=== PATIENT | male | born 1955 | race Caucasian/White ===

== ENCOUNTER → 2020-08-25 14:51 | Outpatient (CLI) | payer MEDICARE, OTHER, SELFPAY | PROVIDERS: PCP Family Medicine; Referring Provider Family Medicine; Visit Provider Family Medicine | DX: Z00.00 Encounter for general adult medical examination without abnormal findings (principal) ==

== ENCOUNTER → 2023-07-10 | Outpatient (CLI) | payer MEDICARE, OTHER, SELFPAY ==
[2023-07-10 17:33] LABS: Hematocrit 48.7 % (40-54); Hemoglobin 16.1 g/dL (13.0-16.5); Mean Corp Hgb Conc 33.1 g/dL (32-36); Mean Corpuscular Hgb 28.8 pg (27.0-32.0); Mean Platelet Vol. 8.7 fl (6.2-12.0); Platelet Count 327 K/mm3 (150-450); RBC Distribution Width CV 12.9 % (11.6-14.6); RBC Distribution Width SD 41.2 fl (35.1-43.9); White Blood Count 6.1 K/mm3 (4.4-11.0)
[2023-07-10 18:22] LABS: ALB/GLOB Ratio 1.3 RATIO (0.9-2.4); AST(SGOT) 19 U/L (15-37); Alanine Aminotransfer ALT/SGPT 37 U/L (16-61); Albumin, Serum 4.3 g/dL (3.2-5.0); Alkaline Phosphatase 63 U/L (45-117); Anion Gap 8 (5-15); BUN 19 mg/dL (7-18); BUN/Creat Ratio 16.2 RATIO (10-20); Calcium,Total 9.4 mg/dL (8.5-10.1); Chloride 108 mmol/L (98-107); Cholesterol 226 mg/dL (200); Creatinine, Serum 1.17 mg/dL (0.70-1.30); EST Glomerular Filtration Rate 66 mL/min (>60); Est Glom Filt Rate - Afr Amer 80 mL/min (>60); Globulin 3.3 g/dL (2.2-4.2); Glucose 89 mg/dL (74-106); High Density Lipoprotein 65 mg/dL; Potassium 3.9 mmol/L (3.5-5.1); Protein, Total 7.6 g/dL (6.4-8.2); Sodium Level 141 mmol/L (136-145); Thyroid Stim Hormone (TSH) 1.97 uIU/mL (0.358-3.74); Triglycerides 86 mg/dL; Very Low Density Lipoprotein 17 mg/dL (5-40)
== END | disposition home or self-care (01) ==
LOC: MFPLAB 15:34
PROVIDERS: Nurse Practitioner Family; PCP Family Medicine; Visit Provider Family Medicine
DX: R03.0 Elevated blood-pressure reading, without diagnosis of hypertension (principal)
CPT/HCPCS: 36415; 80053; 80061; 84443; 85027

== ENCOUNTER → 2024-01-10 | Outpatient (CLI) | payer MEDICARE, OTHER, SELFPAY ==
[2024-01-10 15:39] LABS: Anion Gap 4 (5-15); BUN 30 mg/dL (7-18); Calcium,Total 9.8 mg/dL (8.5-10.1); Chloride 105 mmol/L (98-107); Creatinine, Serum 1.25 mg/dL (0.70-1.30); EST Glomerular Filtration Rate 61 mL/min (>60); Est Glom Filt Rate - Afr Amer 74 mL/min (>60); Glucose 94 mg/dL (74-106); Potassium 4.7 mmol/L (3.5-5.1); Sodium Level 137 mmol/L (136-145)
== END | disposition home or self-care (01) ==
PROVIDERS: PCP Family Medicine; Visit Provider Family Medicine
DX: I10 Essential (primary) hypertension (principal)
CPT/HCPCS: 36415; 80048

== ENCOUNTER → 2024-10-20 | Outpatient (CLI) | payer MEDICARE, SELFPAY ==
[2024-10-20 16:14] LABS: Anion Gap 12 (5-15); BUN 23 mg/dL (4-19); BUN/Creat Ratio 17.7 RATIO (10-20); Calcium,Total 9.8 mg/dL (7.6-11.0); Carbon Dioxide 24.6 mmol/L (21.0-32.0); Chloride 104 mmol/L (98-108); Cholesterol 180 mg/dL (<=200); Glucose 94 mg/dL (70-99); Low Density Lipoprotein Calc. 108 mg/dL; PSA,Total - Annual Screen 3.57 ng/mL (0.02-4.00); Potassium 4.3 mmol/L (3.3-5.1); Triglycerides 100 mg/dL; Very Low Density Lipoprotein 20 mg/dL (5-40); cholesterol:hdl ratio screen 3.47
== END | disposition home or self-care (01) ==
LOC: MFPLAB 11:53
PROVIDERS: PCP Family Medicine; Referring Provider Family Medicine; Visit Provider Family Medicine
DX: Z12.5 Encounter for screening for malignant neoplasm of prostate (principal); I10 Essential (primary) hypertension
CPT/HCPCS: 36415; 80048; 80061; 84153; G0103

== ENCOUNTER 2025-01-22 12:14 | Observation (INO) | payer MEDICARE, OTHER, SELFPAY ==
[2025-01-22] VITALS (21 sets, daily range): BP systolic 113–154; BP diastolic 66–109; PULSE 62–88; RESP 13–22; TEMP 36.4–36.9; O2SAT 95–100; BMI 29.4; BMI 28.5
--- NOTE | 2025-01-22 12:23 | EKG12_ITS ---
Test Reason : TIA
--- NOTE | 2025-01-22 12:23 | CT_ITS ---
PROCEDURE: CT/STROKE Brain/Head without Cont
--- NOTE | 2025-01-22 12:23 | CT_ITS ---
PROCEDURE: CT/STROKE CTA Head AND Neck W/Con
--- NOTE | 2025-01-22 12:24 | ED.VIS.STROK ---
HPI History of Present Illness Chief Complaint: Stroke Alert Informant: patient and spouse/S.O. Narrative Narrative: Patient is a 69-year-old male denies any significant past medical history presenting for right sided weakness and blurred vision. Patient states he was having his morning coffee (around 1045) with started to feel weak and a little numb on the right side of his body. Notes he had some blurry vision. He was able to still hold his coffee cup. He is right-hand dominant. He also notes he felt a little dizzy. He states he felt fine when he got up this morning around 9 or 930. He came in for further evaluation. He says he is otherwise been in his normal state of health. He denies any headache. He is on any blood thinners. [place] any show any bleeding disorders or head trauma. Currently states his symptoms have pretty much resolved he still feels a little off on the right side. PFSH PFS Medical History no medical history Home Medications ?Medication ?Instructions ?Recorded ?Last Taken ?Type lisinopril 20 1 tab PO BID 01/22/25 01/22/25 History mg-hydrochlorothiazide 12.5 mg tablet Allergy/AdvReac Type Severity Reaction Status Date / Time No Known Allergies Allergy Verified 01/22/25 12:28 Family History no significant family his Surgical History no surgical history Social History Smoking Status: Former smoker ROS ROS ED Constitutional Constitutional ED: Denies chills or fever(s) Eyes Eyes: Reports blurry vision ENT ENT ED: Denies sore throat Cardiovascular Cardiovascular: Denies chest pain Respiratory/Chest Respiratory/Chest: Denies cough or dyspnea Gastrointestinal Gastrointestinal: Denies abdominal pain, nausea or vomiting Musculoskeletal Musculoskeletal: Denies arthralgias or myalgias Integumentary Denies rash Neurologic Neurologic: Reports paresthesias and weakness; Denies headache(s) Psychiatric Psychiatric: Denies anxiety Hematologic/Lymphatic Hematologic/Lymphatic: Denies easy bleeding or easy bruising EXAM Physical Exam Const Vital Signs: 01/22/25 12:15 01/22/25 12:18 01/22/25 12:23 Temperature 97.6 F L 97.6 F L Temperature Source Temporal Oral Pulse Rate 78 75 71 Respiratory Rate 16 16 14 Blood Pressure 149/86 H 149/86 H 128/90 H Blood Pressure Mean 107 107 102 Pulse Ox 99 97 100 Oxygen Delivery Method Room Air Room Air Room Air 01/22/25 12:42 01/22/25 12:43 01/22/25 12:44 Temperature Temperature Source Pulse Rate 83 70 Respiratory Rate 14 13 Blood Pressure 144/109 H 136/77 H 133/83 H Blood Pressure Mean 120 93 96 Pulse Ox 99 100 Oxygen Delivery Method 01/22/25 12:45 01/22/25 12:45 01/22/25 12:49 Temperature Temperature Source Pulse Rate 71 71 Respiratory Rate 14 15 Blood Pressure 128/90 H Blood Pressure Mean 102 Pulse Ox 100 100 Oxygen Delivery Method Room Air Room Air 01/22/25 13:00 01/22/25 13:15 01/22/25 13:30 Temperature Temperature Source Pulse Rate 69 72 72 Respiratory Rate 17 22 H 22 H Blood Pressure 133/86 H Blood Pressure Mean 101 Pulse Ox 100 97 97 Oxygen Delivery Method 01/22/25 13:40 01/22/25 13:45 01/22/25 14:00 Temperature Temperature Source Pulse Rate 62 70 Respiratory Rate 18 16 Blood Pressure 147/91 H 149/85 H 149/85 H Blood Pressure Mean 107 104 106 Pulse Ox 96 99 Oxygen Delivery Method 01/22/25 14:08 01/22/25 14:15 Temperature 97.6 F L Temperature Source Pulse Rate 70 69 Respiratory Rate 16 17 Blood Pressure 149/85 H 149/85 H Blood Pressure Mean 106 106 Pulse Ox 99 95 Oxygen Delivery Method Positive well nourished and well developed General Appearance ED: well developed and NAD HEENT Reports moist mucous membranes Eyes PERRL Neck supple Chest Wall inspection of chest normal and palpation of chest normal Resp normal respiratory effort and clear to auscultation bilaterally Cardio no murmurs Cardio Narrative: 2+ radial DP pulses Rate: regular rate Rhythm: regular rhythm GI normal to inspection, nondistended, normoactive bowel sounds and soft to palpation Extremity normal to inspection General Extremety ED: Negative for deformity or edema General Extremity: Negative for deformity or edema Neuro oriented x3, CN's II-XII intact bilaterally and no sensory deficits noted Neuro Narrative: NIH equals 0 Sensorium / Orientation: alert, oriented to person, oriented to place and oriented to time Speech: speech normal Motor Exam: strength 5/5 throughout; Negative for general weakness Psych mental status grossly normal Skin no wounds Lesions: no lesions Rashes: no rashes MDM MDM MDM Narrative Medical decision making narrative: Patient is evaluated for right sided weakness and paresthesias as well as blurry vision. Stroke alert was called upon arrival however our I meetly went to the bedside and patient does not have any objective weakness. Sensation is intact to light touch and he does not have any subjective paresthesias at this time. His NIH is currently 0. Will cancel stroke alert but will come up for possible acute stroke/TIA. Given that his NIH is currently 0 he is not a TNK candidate. Workup is largely unremarkable wound CT of the brain, CTA of the head and neck, chest x-ray, EKG, CBC, BMP, coags and high-sensitivity troponins. Patient is mildly hypertensive emergency room. Will be admitted for further stroke/TIA evaluation. Case discussed with hospitalist, Dr. Currie. Patient and family agreeable with this plan of care. Patient tin hemodynamically stable in the emergency room. Lab Data Attestation: I reviewed the patient's lab results. Labs: Laboratory Results - last 24 hr 01/22/25 01/22/25 01/22/25 12:20 12:35 14:07 WBC 7.8 RBC 5.26 Hgb 15.5 Hct 45.9 MCV 87.3 MCH 29.5 MCHC 33.8 RDW Std Deviation 39.9 RDW Coeff of Pari 12.5 Plt Count 306 MPV 8.4 Immature Gran % (Auto) 0.500 Neut % (Auto) 63.1 Lymph % (Auto) 23.4 [place] % (Auto) 9.6 Eos % (Auto) 2.6 Baso % (Auto) 0.8 Absolute Neuts (auto) 4.9 Absolute Lymphs (auto) 1.82 Nucleated RBC % 0 PT 12.6 INR 0.9 APTT 22.8 L Sodium 139 Potassium 4.3 Chloride 104 Carbon Dioxide 25.6 Anion Gap 10 BUN 27 H Creatinine 1.38 H Estim Creat Clear Calc 59.64 Est GFR (MDRD) Non-Af 55 L BUN/Creatinine Ratio 19.2 Glucose 103 H Calcium 9.6 Troponin T High Sens 10 Troponin T Hi Sens 2 Hr 7 POC Glucose 92 Radiography Diagnostic Testing: Clinical Impression(s) from Imaging Studies Brain CT 01/22/25 12:23 IMPRESSION: No intracranial hemorrhage or other acute process is seen. Stroke Alert: No intracranial hemorrhage or other acute process. The critical findings in the findings and impression above were relayed directly by me by telephone to Glendy Thorne on 01/22/2025 at 11:57 with readback verification. Reading Location: [address] Head/Neck CTA 01/22/25 12:23 IMPRESSION: Unremarkable examination. Reading Location: [facility] Chest X-Ray 01/22/25 12:35 IMPRESSION: Lungs appear clear. No pleural effusion or pneumothorax is seen. The cardiomediastinal silhouette is within the normal range for age. No acute osseous changes seen. No evidence of acute cardiopulmonary disease. Reading Location: [address] Rhythm Strip Rhythm Strip: Sinus Rhythm Rate: 71 Ectopy: None EKG Initial EKG: Attestation: I personally reviewed and interpreted this EKG as follows: Interpretation: Sinus Rhythm Comments: Normal sinus rhythm rate of 71 bpm Normal axis Normal intervals Normal ST segment Management Discussion w/another healthcare provider: Hospitalist and Radiologist (CTA neg) Discharge Plan Dx/Rx/DC Orders Clinical Impression: Right sided weakness, HTN (hypertension) Disposition Disposition: Acute Care Hospital [facility] Discharge Date/Time: 01/22/25 14:35 NIHSS NIHSS 1a. Level of Consciousness: 0 - Alert; keenly responsive 1b. LOC Questions: 0 - Answers BOTH questions correctly 1c. LOC Commands: 0 - Performs BOTH tasks correctly 2. Best Gaze: 0 - Normal 3. Visual: 0 - No visual loss 4. Facial Palsy: 0 - Normal symmetrical movements 5a. Left Arm: 0 - No drift; arm holds 90 (or 45) degrees for full 10 seconds 5b. Right Arm: 0 - No drift; arm holds 90 (or 45) degrees for full 10 seconds 6a. Left Le - No drift; leg holds 30-degree position for full 5 seconds 6b. Right Le - No drift; leg holds 30-degree position for full 5 seconds 7. Limb Ataxia: 0 - Absent 8. Sensory: 0 - Normal; no sensory loss 9. Best Language: 0 - No aphasia; normal 10. Dysarthria: 0 - Normal 11. Extinction and Inattention: 0 - No abnormality Total: 0 Stroke Questions Stroke Team Activated: Yes Reviewed Inclusion/Exclusion criteria: Yes IV Thrombolytic Administered: No (NIH currently 0)
[2025-01-22 12:32] LABS: Hematocrit 45.9 % (40-54); Hemoglobin 15.5 g/dL (13.0-16.5); Immature Granulocytes Count 0.040 X10^3/uL (0.0-0.0); Mean Corp Hgb Conc 33.8 g/dL (32-36); Mean Corpuscular Volume 87.3 fL (80-94); Mean Platelet Vol. 8.4 fl (6.2-12.0); NRBC Flagged by Analyzer 0 % (0-5); Platelet Count 306 K/mm3 (150-450); RBC Distribution Width CV 12.5 % (11.6-14.6); RBC Distribution Width SD 39.9 fl (35.1-43.9); Red Blood Count 5.26 M/mm3 (4.6-6.2); White Blood Count 7.8 K/mm3 (4.4-11.0)
--- NOTE | 2025-01-22 12:35 | RAD_ITS ---
PROCEDURE: RAD/Chest 1 View
[2025-01-22 12:41] LABS: Partial Thromboplast Time 22.8 Seconds (24.1-36.2); Prothrombin Time (Protime)PT. 12.6 SECONDS (11.7-14.9)
[2025-01-22 12:49] LABS: Anion Gap 10 (5-15); BUN 27 mg/dL (4-19); BUN/Creat Ratio 19.2 RATIO (10-20); Calcium,Total 9.6 mg/dL (7.6-11.0); Carbon Dioxide 25.6 mmol/L (21.0-32.0); Chloride 104 mmol/L (98-108); Estimated Creatinine Clearance 59.64 ml/min (50-250); Glucose 103 mg/dL (70-99); Potassium 4.3 mmol/L (3.3-5.1); Troponin T High Sensitivity 10 ng/L (<=22)
--- NOTE | 2025-01-22 13:04 | ED.RN ---
Per Americo Sneed to cancel NIH.
--- NOTE | 2025-01-22 13:19 | CHAPLAIN ---
Type of Pastoral Visit ___ Initial Visit ___ Follow-up Visit ___ On-call Visit ___ General Patient Visit ___ Spiritual Assessment ___ Family Conference ___ Bereavement ___ Rapid Response ___ Code Blue ___ Other (describe below) Pastoral Care Referral From ___ Patient ___ Family ___ Nurse ___ Physician ___ Knitting Inspector ___ Real Estate Agent/Broker ___ Other (describe below) Sacrament/Intervention ___ Active listening ___ Anointing ___ Adventism ___ Bereavement ___ Communion ___ [place] exploration ___ ___ Life review ___ Prayer ___ Reconciliation ___ Sacrament of Sick ___ Supportive presence ___ Wedding ___ Other (describe below) Pastoral Comments responded to stroke alert in the ED; pt was being taken to CT for evaluation; and son are in the room and offered support; denies needs; pt was alert and talking so there was optimism for good outcome; brought water to family and offered future support as desired
--- NOTE | 2025-01-22 14:14 | CM.ED ---
Social Work Reason for visit: Stroke Alert SW and [facility] x ray equipment tester met with patients and son, both denied any needs at this time. Danica Noyola, UPPER DOUBLER, EXECUTIVE VICE PRESIDENT AND CHIEF OPERATING OFFICER
--- NOTE | 2025-01-22 14:27 | PCM.HP.STD ---
HPI - General General Date of Admission: 01/22/25 Date of Service: 01/22/25 Chief Complaint: R sided weakness HPI Narrative VERONICA LUNA, is [id number] male with a history of hypertension presented [facility] ED 01/22/2025 for right sided weakness and blurred vision. Reportedly was having his morning coffee at 1045 and then felt a little bit weak and numb on the right side of his body with some blurry vision but was still able to hold his coffee cup. Also had a little dizzy at the time. He presented the ED for further evaluation. In the ED temp 97.6, heart rate 78, blood pressure 149/86, respiratory rate 16 pulse ox 99% on room air. CBC no acute abnormalities, BMP with a BUN of 27 and creatinine 1.38, troponin of 10. CT head and CTA head and neck with no acute process. Hospitalist contacted for admission for stroke rule out. Patient evaluated bedside. He reports history as above, went to get his coffee this a.m. and right leg suddenly felt very weak but he was able to continue to stand before lowering himself to the ground, also felt like right arm was weaker and did not feel quite right, possibly some paresthesias on the right side as well, no changes in his face, possibly some blurry vision but said he felt more lightheaded than anything. Noted that he got his flu shot yesterday and fill congested this morning, no fevers, no shortness of breath or chest pain. He reports symptoms have almost resolved but he still feels like his right lower extremity is slightly weaker than his left and noticed it when he got up to ambulate to the bathroom [facility] Medical History no medical history Home Medications ?Medication ?Instructions ?Recorded ?Last Taken ?Type lisinopril 20 1 tab PO BID 01/22/25 01/22/25 History mg-hydrochlorothiazide 12.5 mg tablet Allergy/AdvReac Type Severity Reaction Status Date / Time No Known Allergies Allergy Verified 01/22/25 12:28 Family History no significant family his Surgical History no surgical history Social History Smoking Status: Former smoker ROS ROS Narrative General: Denies fever/chills HENT: Denies headache, little bit of nasal congestion, denies sore throat EYES: Denies changes in vision Resp: Denies cough, denies shortness of breath Cardiac: Denies chest pain GI: Denies abdominal pain, denies changes in bowel, denies nausea/vomiting : Denies changes in urination Extremity: Denies swelling MSK: Had weakness in right lower extremity greater than right upper extremity, right upper extremity symptoms have resolved, still feels slightly weak in right lower extremity Neuro: Denies any numbness/tingling or paresthesias at this time, did possibly have some of the very onset of symptoms Heme: Denies any bleeding or bruising Skin: Denies rashes Psychiatric: No complaints voiced Vital Signs Vital Signs Vital Signs: 01/22/25 12:15 01/22/25 12:18 01/22/25 12:23 Temperature 97.6 F L 97.6 F L Temperature Source Temporal Oral Pulse Rate 78 75 71 Respiratory Rate 16 16 14 Blood Pressure 149/86 H 149/86 H 128/90 H Blood Pressure Mean 107 107 102 Pulse Ox 99 97 100 Oxygen Delivery Method Room Air Room Air Room Air 01/22/25 12:42 01/22/25 12:43 01/22/25 12:44 Temperature Temperature Source Pulse Rate 83 70 Respiratory Rate 14 13 Blood Pressure 144/109 H 136/77 H 133/83 H Blood Pressure Mean 120 93 96 Pulse Ox 99 100 Oxygen Delivery Method 01/22/25 12:45 01/22/25 12:45 01/22/25 12:49 Temperature Temperature Source Pulse Rate 71 71 Respiratory Rate 14 15 Blood Pressure 128/90 H Blood Pressure Mean 102 Pulse Ox 100 100 Oxygen Delivery Method Room Air Room Air 01/22/25 13:00 01/22/25 13:15 01/22/25 13:30 Temperature Temperature Source Pulse Rate 69 72 72 Respiratory Rate 17 22 H 22 H Blood Pressure 133/86 H Blood Pressure Mean 101 Pulse Ox 100 97 97 Oxygen Delivery Method 01/22/25 13:40 01/22/25 13:45 01/22/25 14:00 Temperature Temperature Source Pulse Rate 62 70 Respiratory Rate 18 16 Blood Pressure 147/91 H 149/85 H 149/85 H Blood Pressure Mean 107 104 106 Pulse Ox 96 99 Oxygen Delivery Method 01/22/25 14:08 Temperature 97.6 F L Temperature Source Pulse Rate 70 Respiratory Rate 16 Blood Pressure 149/85 H Blood Pressure Mean 106 Pulse Ox 99 Oxygen Delivery Method Weight Weight: 95.7 kg Body Mass Index (BMI) 29.4 Physical Exam Narrative General: Alert, oriented, no apparent distress HEENT: Atraumatic, normocephalic Eyes: Anicteric, normal conjunctiva, extraocular movements intact, pupils equal Neck: Supple Respiratory: Clear to auscultation bilaterally, normal respiratory effort Cardiovascular: Regular rate and rhythm GI: Soft, nontender, nondistended Extremities: No edema Musculoskeletal: Strength 5 out of 5 in right upper extremity, 5 out of 5 left upper extremity, 5 - out of 5 right lower extremity, 5 out of 5 left lower extremity Neuro: No overt focal neurological deficits, cranial nerves II through XII intact, [id number] without significant difficulty bilaterally Skin: No rashes appreciated Psych: Cooperative Results Lab / Micro Data 01/22/25 12:20 01/22/25 12:20 Labs: Laboratory Results - last 24 hr 01/22/25 12:20: WBC 7.8, RBC 5.26, Hgb 15.5, Hct 45.9, MCV 87.3, MCH 29.5, MCHC 33.8, RDW Std Deviation 39.9, RDW Coeff of Pari 12.5, Plt Count 306, MPV 8.4, Immature Gran % (Auto) 0.500, Neut % (Auto) 63.1, Lymph % (Auto) 23.4, [place] % (Auto) 9.6, Eos % (Auto) 2.6, Baso % (Auto) 0.8, Absolute Neuts (auto) 4.9, Absolute Lymphs (auto) 1.82, Nucleated RBC % 0, PT 12.6, INR 0.9, APTT 22.8 L, Sodium 139, Potassium 4.3, Chloride 104, Carbon Dioxide 25.6, Anion Gap 10, BUN 27 H, Creatinine 1.38 H, Estim Creat Clear Calc 59.64, Est GFR (MDRD) Non-Af 55 L, BUN/Creatinine Ratio 19.2, Glucose 103 H, Calcium 9.6, Troponin T High Sens 10 01/22/25 12:35: POC Glucose 92 Imaging Radiology Impression Brain CT 01/22/25 12:23 IMPRESSION: No intracranial hemorrhage or other acute process is seen. Stroke Alert: No intracranial hemorrhage or other acute process. The critical findings in the findings and impression above were relayed directly by me by telephone to Glendy Thorne on 01/22/2025 at 11:57 with readback verification. Reading Location: [address] Head/Neck CTA 01/22/25 12:23 IMPRESSION: Unremarkable examination. Reading Location: [facility]-IR-1 Chest X-Ray 01/22/25 12:35 IMPRESSION: Lungs appear clear. No pleural effusion or pneumothorax is seen. The cardiomediastinal silhouette is within the normal range for age. No acute osseous changes seen. No evidence of acute cardiopulmonary disease. Reading Location: [address] Assessment & Plan Assessment/Plan (1) Right sided weakness: (2) HTN (hypertension): PLAN: Plan # Right-sided weakness -Presented with right upper and lower extremity weakness leg greater than arm, still has some very mild residual weakness in the leg with other symptoms resolved, no further paresthesias -Admit to tele -CT head w/ no acute process -CTA head and neck no acute process -MRI ordered -NIH q4hr -asa, statin -Echo -PT/OT/Speech eval -Teleneuro consult ordered -Hold BP medications to allow for permissive hypertension for 24 hours unless SBP greater than 220 or DBP greater than 120 or until stroke is ruled out #Hypertension - Hold home antihypertensives due to stroke rule out to allow for permissive hypertension #DVT ppx: SCDs Yaritza Currie MD Charges/Coding Visit Charges Inpatient E&M: 07540 Init Hosp L2
[2025-01-22 14:36] LABS: Troponin T High Sens 2 HR 7 ng/L (<=22)
--- NOTE | 2025-01-22 15:00 | ECHOD_ITS ---
Reason For Study ECHO/Echo Complete
--- NOTE | 2025-01-22 15:00 | MRI_ITS ---
PROCEDURE: MRI/Brain without Contrast
[2025-01-22 17:24] LABS: Troponin T High Sens 4 HR 10 ng/L (<=22)
[2025-01-22] MEDS: 0.9% Normal Saline (1000mL) 1,000 ML 100 ML IV (17:39)
[2025-01-23 00:56] VITALS: BMI 28.5
[2025-01-23 03:34] VITALS: BP 116/69; PULSE 72; RESP 18; TEMP 37; O2SAT 94
[2025-01-23 05:51] LABS: Hematocrit 41.9 % (40-54); Hemoglobin 14.1 g/dL (13.0-16.5); Immature Granulocytes Count 0.020 X10^3/uL (0.0-0.0); Mean Corp Hgb Conc 33.7 g/dL (32-36); Mean Corpuscular Volume 88.2 fL (80-94); Mean Platelet Vol. 8.7 fl (6.2-12.0); NRBC Flagged by Analyzer 0 % (0-5); Platelet Count 278 K/mm3 (150-450); RBC Distribution Width CV 12.7 % (11.6-14.6); RBC Distribution Width SD 40.7 fl (35.1-43.9); Red Blood Count 4.75 M/mm3 (4.6-6.2); White Blood Count 7.0 K/mm3 (4.4-11.0)
[2025-01-23 06:27] LABS: Anion Gap 10 (5-15); BUN 21 mg/dL (4-19); BUN/Creat Ratio 15.8 RATIO (10-20); Calcium,Total 8.9 mg/dL (7.6-11.0); Carbon Dioxide 24.3 mmol/L (21.0-32.0); Chloride 106 mmol/L (98-108); Cholesterol 186 mg/dL (<=200); Estimated Creatinine Clearance 61.05 ml/min (50-250); Glucose 108 mg/dL (70-99); Low Density Lipoprotein Calc. 118 mg/dL; Potassium 4.0 mmol/L (3.3-5.1); Triglycerides 112 mg/dL; Very Low Density Lipoprotein 22 mg/dL (5-40); cholesterol:hdl ratio screen 3.92
[2025-01-23 07:26] VITALS: BP 104/70; PULSE 74; RESP 14; TEMP 36.5; O2SAT 96
[2025-01-23 10:53] VITALS: BMI 28.5
[2025-01-23 11:17] VITALS: BP 129/73; PULSE 83; RESP 16; TEMP 36.9; O2SAT 96
[2025-01-23 12:33] VITALS: O2SAT 95
--- NOTE | 2025-01-23 13:26 | CON.PCM.NE_ITS ---
Assessment and Plan: Stroke
--- NOTE | 2025-01-23 13:26 | STROKE.CONS ---
Assessment and Plan: Stroke Assessment/Plan VERONICA LUNA is a 69 M with a history of HTN who presents for evaluation of for R leg weakness. Stroke etiology is cryptogenic ?The following tests for stroke work-up have been/should be obtained:? ? Neuroimaging: MRI with L gallego radiata stroke ? Vascular imaging: no significant athero ? Cardiac testing: TTE prior to discharge ? Cardiac monitorin day equipment monitor phototypesetting on discharge ? Labs: HgbA1c 5.6, LDL 118 ?Anti-platelet medication: Plavix 300mg once and ASA 81mg + Plavix 75mg x 21 days then ASA 81mg alone ?Statin therapy: atorvastatin 40mg ?Occupational/Physical therapy consults ?DVT prophylaxis with SCDs and heparin SQ. ?Vascular risk factor modification.? The following are the recommended guidelines: LDL Goal < 70 Smoking Cessation Diabetes management penitentiary Blood pressure control should achieve <130/80 mmHg.? BP management should aim to achieve fpc control in a reasonable amount of time, taking into consideration the individual patient's requirements and characteristics. Weight Management: Goal for BMI is 18.5-24.9 kg/m2. Alcohol: No more than 2 drinks/day for men or 1 drink/day for non- women. Promote lifestyle modification: weight control, physical activity, moderation of alcohol intake, moderate sodium intake. I personally attended this patient and spent a total time of 45min evaluating this patient including clinical assessment, review of chart, medical history, and imaging, and determining appropriate treatment and workup. HPI Consult Data Date of Consult: 01/23/25 HPI Narrative HPI Narrative: VERONICA LUNA, is a 69-year-old male with a history of hypertension presented [facility] ED 01/22/2025 for right sided weakness and blurred vision. Reportedly was having his morning coffee at 1045 and then felt a little bit weak and numb on the right side of his body with some blurry vision but was still able to hold his coffee cup. Also had a little dizzy at the time. He presented the ED for further evaluation. In the ED temp 97.6, heart rate 78, blood pressure 149/86, respiratory rate 16 pulse ox 99% on room air. CBC no acute abnormalities, BMP with a BUN of 27 and creatinine 1.38, troponin of 10. CT head and CTA head and neck with no acute process. Hospitalist contacted for admission for stroke rule out. Patient evaluated bedside. He reports history as above, went to get his coffee this a.m. and right leg suddenly felt very weak but he was able to continue to stand before lowering himself to the ground, also felt like right arm was weaker and did not feel quite right, possibly some paresthesias on the right side as well, no changes in his face, possibly some blurry vision but said he felt more lightheaded than anything. Noted that he got his flu shot yesterday and fill congested this morning, no fevers, no shortness of breath or chest pain. He reports symptoms have almost resolved but he still feels like his right lower extremity is slightly weaker than his left and noticed it when he got up to ambulate to the bathroom Neurologic History History above was confirmed. R leg is still not completely normal. No blurred vision or lightheaded. Never had stroke before. Does not take blood thinners at home. Not a smoker. Does not measure regularly at home - once a week they run 120-140s. No history of hear palpitations. Exam -? General: Laying comfortably in bed; in no acute distress. -? HENT: Normal oropharynx and mucosa. Normal external appearance of ears and nose. Exophthalmos. -? Neck: Supple, no pain or tenderness -? CV:? No peripheral edema. -? Pulmonary:? Normal respiratory effort. -? Ext: No cyanosis, edema, or deformity -? Skin: No rash. Normal palpation of skin.? -? Musculoskeletal: full range of motion; no joint tenderness. Normal digits and nails by inspection. No clubbing. -? NEURO: -? Mental Status: The patient was alert and oriented to time, place, and person. Normal recent/remote memory, concentration, and general fund of knowledge. -? Language: speech is clear.? Naming, repetition, fluency, and comprehension intact. -? Cranial Nerves: R pupil 2 mm/brisk. L pupil 3mm/brisk. EOMI, visual chan full, no facial asymmetry, facial sensation intact, hearing intact, tongue midline, no evidence of atrophy or fibrillations. -? Motor: normal bulk, tone, and strength throughout. No pronator drift or satelliting. Upper and lower extremities equal bilaterally. -?SA 5/5 bilaterally -? Tone: is normal and bulk is normal -? Sensation- Intact to light touch bilaterally -? Coordination: No dysmetria on [id number], finger follow finger or [id number]. -? Gait- deferred [facility] Medical History no medical history Home Medications ?Medication ?Instructions ?Recorded ?Last Taken ?Type lisinopril 20 1 tab PO BID 01/22/25 01/22/25 History mg-hydrochlorothiazide 12.5 mg tablet Allergy/AdvReac Type Severity Reaction Status Date / Time No Known Allergies Allergy Verified 01/22/25 12:28 Family History no significant family his Surgical History no surgical history Social History Smoking Status: Former smoker Vital Signs Vital Signs Vital Signs: 01/22/25 13:30 01/22/25 13:40 01/22/25 13:45 Temperature Temperature Source Pulse Rate 72 62 Pulse Strength Respiratory Rate 22 H 18 Respiratory Effort Respiratory Depth Respiratory Pattern Blood Pressure 147/91 H 149/85 H Blood Pressure Mean 107 104 Blood Pressure Source Blood Pressure Position Blood Pressure Location Pulse Ox 97 96 Oxygen Delivery Method 01/22/25 14:00 01/22/25 14:08 01/22/25 14:15 Temperature 97.6 F L Temperature Source Pulse Rate 70 70 69 Pulse Strength Respiratory Rate 16 16 17 Respiratory Effort Respiratory Depth Respiratory Pattern Blood Pressure 149/85 H 149/85 H 149/85 H Blood Pressure Mean 106 106 106 Blood Pressure Source Blood Pressure Position Blood Pressure Location Pulse Ox 99 99 95 Oxygen Delivery Method 01/22/25 14:30 01/22/25 14:50 01/22/25 15:55 Temperature 98.5 F Temperature Source Temporal Pulse Rate 66 Pulse Strength Respiratory Rate 15 Respiratory Effort Respiratory Depth Respiratory Pattern Blood Pressure 149/85 H 154/85 H Blood Pressure Mean 106 108 Blood Pressure Source Monitor Blood Pressure Position Semi-Fowlers Blood Pressure Location Left Arm Pulse Ox 98 Oxygen Delivery Method Room Air Room Air 01/22/25 18:00 01/22/25 19:35 01/22/25 20:07 Temperature 98.1 F 98.3 F Temperature Source Oral Temporal Pulse Rate 88 74 Pulse Strength Respiratory Rate 15 18 Respiratory Effort Respiratory Depth Respiratory Pattern Blood Pressure 125/77 H 113/66 Blood Pressure Mean 93 81 Blood Pressure Source Monitor Monitor Blood Pressure Position Semi-Fowlers Semi-Fowlers Blood Pressure Location Right Arm Right Arm Pulse Ox 97 95 97 Oxygen Delivery Method Room Air Room Air Room Air 01/22/25 21:00 01/22/25 22:00 01/22/25 23:34 Temperature 98.3 F Temperature Source Oral Pulse Rate 68 Pulse Strength Normal (2+) Respiratory Rate 18 Respiratory Effort Normal Non-Labored Respiratory Depth Normal Respiratory Pattern Normal Blood Pressure 131/72 H Blood Pressure Mean 91 Blood Pressure Source Monitor Blood Pressure Position Semi-Fowlers Blood Pressure Location Left Arm Pulse Ox 95 Oxygen Delivery Method Room Air Room Air 01/23/25 03:34 01/23/25 07:26 01/23/25 08:12 Temperature 98.6 F 97.7 F L Temperature Source Oral Oral Pulse Rate 72 74 Pulse Strength Respiratory Rate 18 14 Respiratory Effort Normal Non-Labored Respiratory Depth Normal Respiratory Pattern Normal Blood Pressure 116/69 104/70 Blood Pressure Mean 84 81 Blood Pressure Source Monitor Monitor Blood Pressure Position Semi-Fowlers Semi-Fowlers Blood Pressure Location Left Arm Left Arm Pulse Ox 94 96 Oxygen Delivery Method Room Air Room Air Room Air 01/23/25 08:57 01/23/25 11:17 01/23/25 12:33 Temperature 98.5 F Temperature Source Oral Pulse Rate 83 Pulse Strength Normal (2+) Respiratory Rate 16 Respiratory Effort Respiratory Depth Respiratory Pattern Blood Pressure 129/73 H Blood Pressure Mean 91 Blood Pressure Source Monitor Blood Pressure Position Sitting Blood Pressure Location Left Arm Pulse Ox 96 95 Oxygen Delivery Method Room Air Room Air Weight Weight: 92.9 kg Body Mass Index (BMI) 28.5 EEG Results Procedure Details EEG Procedure Details: VERONICA LUNA is a 69 year old M with a past medical history of , who presents for evaluation of Electroencephalogram on DATE at TIME Lab / Micro Data 01/23/25 05:02 01/23/25 05:02 Labs: Laboratory Results - last 24 hr 01/22/25 14:07: Troponin T Hi Sens 2 Hr 7 01/22/25 16:16: Troponin T Hi Sens 4Hr 10 01/23/25 05:02: WBC 7.0, RBC 4.75, Hgb 14.1, Hct 41.9, MCV 88.2, MCH 29.7, MCHC 33.7, RDW Std Deviation 40.7, RDW Coeff of Pari 12.7, Plt Count 278, MPV 8.7, Immature Gran % (Auto) 0.300, Neut % (Auto) 62.3, Lymph % (Auto) 22.1, [place] % (Auto) 11.0 H, Eos % (Auto) 3.4, Baso % (Auto) 0.9, Absolute Neuts (auto) 4.4, Absolute Lymphs (auto) 1.55, Nucleated RBC % 0, Sodium 140, Potassium 4.0, Chloride 106, Carbon Dioxide 24.3, Anion Gap 10, BUN 21 H, Creatinine 1.33 H, Estim Creat Clear Calc 61.05, Est GFR (MDRD) Non-Af 58 L, BUN/Creatinine Ratio 15.8, Glucose 108 H, Hemoglobin A1c 5.6, Calcium 8.9, Triglycerides 112, Cholesterol 186, LDL Cholesterol, Calc 118, VLDL Cholesterol 22, HDL Cholesterol 48, Cholesterol/HDL Ratio 3.92, TSH 1.970 Rhythm Strip Rhythm Strip: Sinus Rhythm Rate: 71 Ectopy: None Imaging Radiology Impression Brain CT 01/22/25 12:23 IMPRESSION: No intracranial hemorrhage or other acute process is seen. Stroke Alert: No intracranial hemorrhage or other acute process. The critical findings in the findings and impression above were relayed directly by me by telephone to Glendy Thorne on 01/22/2025 at 11:57 with readback verification. Reading Location: [id number] Brain MRI 01/22/25 15:00 IMPRESSION: Left basal nucleus small focus of faintly increased DWI signal without associated decreased ADC, increased T2/FLAIR, or decreased T1 signal favoring artifact over an acute infarction. Consider repeat imaging in 6 hours to exclude an acute infarct. Reading Location: [address] Active Medications Active Medications Active Medications: Current Medications Generic Name Dose Route Start Last Admin Trade Name Freq PRN Reason Stop Dose Admin Acetaminophen 650 mg 01/22/25 15:00 Acetaminophen 325 Mg Tablet PO Q6H PRN PRN Pain 1-10 Or Fever >100.7 Albuterol Sulfate 2.5 mg 01/22/25 15:00 Albuterol 2.5 Mg/3 Ml Vial.Neb. INHALATION Q2H PRN PRN SOB &/OR WHEEZING Aspirin 81 mg 01/23/25 08:00 01/23/25 09:10 Aspirin 81 Mg Tab.Chew PO 81 mg BREAKFAST SHAHZAD Administration Atorvastatin Calcium 80 mg 01/22/25 22:00 01/22/25 21:32 Atorvastatin Calcium 80 Mg Tablet PO 80 mg QHS SHAHZAD Administration Calcium Carbonate 500 mg 01/22/25 22:30 Calcium Carbonate 500 Mg Tablet PO Q4H PRN PRN INDIGESTION Hydralazine HCl 5 mg 01/22/25 15:00 Hydralazine 20 Mg/Ml Vial IV 01/23/25 15:00 Q30M PRN maintain BP parameters with HR <60 Labetalol HCl 10 - 20 mg 01/22/25 15:00 Labetalol 20 Mg/4 Ml Vial IV 01/23/25 15:00 Q10M PRN PRN maintain BP parameters with HR >/=60 Melatonin 10 mg 01/22/25 15:00 Melatonin 10 Mg Tablet PO QHS PRN PRN INSOMNIA Ondansetron HCl 4 mg 01/22/25 15:00 Ondansetron 4 Mg/2 Ml Vial IV Q8H PRN PRN NAUSEA/VOMITING Senna/Docusate Sodium 2 tablet 01/22/25 15:00 Senna/Docusate Sodium 1 Tablet PO BID PRN PRN Constipation NIHSS NIHSS Nursing Documentation NIHSS Nursing Documentation: NIHSS: Ischemic Stroke/TIA Start: 01/22/25 15:00 Text: For PCU Patients: NIH and Neuro Check every 4 Status: Active hours, PRN and with change in RN caregiver. Freq: [id number] Protocol: Activity Type Activity Date Activity User E-sign Co-sign Detail Recorded Client Recorded Date Recorded By Document 01/23/25 11:22 AIDAN [id number] 01/23/25 11:22 AIDAN 01/23/25 11:22 NIH Stroke Scale [NIHSS] A score of 0 is normal or asymptomatic . Total possible score is 42. Inpatient: RN or Physician to activate a stroke alert for onset of new stroke symptoms or with NIHSS increase >/= 3 points. Following change in neurological status, NIHSS will be performed per physician order or more frequently PRN. -1a. Level of Consciousness 0 - Alert; keenly responsive -1b. LOC Questions 0 - Answers BOTH questions correctly -1c. LOC Commands 0 - Performs BOTH tasks correctly -2. Best Gaze 0 - Normal -3. Visual 0 - No visual loss -4. Facial Palsy 0 - Normal symmetrical movements -5a. Left Arm 0 - No drift; arm holds 90 ( or 45) degrees for full 10 seconds -5b. Right Arm 0 - No drift; arm holds 90 ( or 45) degrees for full 10 seconds -6a. Left Leg 0 - No drift; leg holds 30- degree position for full 5 seconds -6b. Right Leg 0 - No drift; leg holds 30- degree position for full 5 seconds -7. Limb Ataxia 0 - Absent -8. Sensory 0 - Normal; no sensory loss -9. Best Language 0 - No aphasia; normal -10. Dysarthria 0 - Normal -11. Extinction and Inattention 0 - No abnormality -Total 0 Query Text:A score of 0 is normal or asymptomatic. Total possible score is 42 . ED: Notify Physician for NIHSS increase by > / = 3 points. Inpatient: RN or Physician to activate a stroke alert for NIHSS increase of > / = 3 points. Coma Scale [Assess] -Eye Opening Spontaneous -Motor Obeys Commands -Verbal Oriented [Total] -Coma Scale Total 15 NIHSS 1a. Level of Consciousness: 0 - Alert; keenly responsive 1b. LOC Questions: 0 - Answers BOTH questions correctly 1c. LOC Commands: 0 - Performs BOTH tasks correctly 2. Best Gaze: 0 - Normal 3. Visual: 0 - No visual loss 4. Facial Palsy: 0 - Normal symmetrical movements 5a. Left Arm: 0 - No drift; arm holds 90 (or 45) degrees for full 10 seconds 5b. Right Arm: 0 - No drift; arm holds 90 (or 45) degrees for full 10 seconds 6a. Left Le - No drift; leg holds 30-degree position for full 5 seconds 6b. Right Le - No drift; leg holds 30-degree position for full 5 seconds 7. Limb Ataxia: 0 - Absent 8. Sensory: 0 - Normal; no sensory loss 9. Best Language: 0 - No aphasia; normal 10. Dysarthria: 0 - Normal 11. Extinction and Inattention: 0 - No abnormality
--- NOTE | 2025-01-23 14:48 | CASEMGMT ---
Social Work SW spoke with the patient and completed a PHQ9. Patience scored a 1. Patient reported he would like to talk with someone regarding the loss of family members. SW provided the patient with a list of counseling agencies. Therapy did not recommend therapy services after DC. Patient reported he has a FWW at home if he would need it. MAGDA Osman
[2025-01-23 15:27] VITALS: BP 137/88; PULSE 79; RESP 16; TEMP 36.6; O2SAT 95
--- NOTE | 2025-01-23 15:38 | DCINST_ITS ---
Discharge Instructions
--- NOTE | 2025-01-23 15:38 | PCM.DC ---
Discharge Instructions DC O2, CPAP, BIPAP needs Home O2 Discharge instructions: No Dressing / Incision Discharge Activity: Return to Normal Activity Weight Bearing Status: Full weight bearing Follow Up Care Test Results: Test results from this visit will be discussed in further detail at your follow-up appointment, if applicable. Discharge Plan Admission Admit Date/Time: 01/22/25 14:27 Primary Reason for Your Visit: Ischemic stroke Attending Provider: Ricardo Delgado Primary Care Provider: Yosi Parra Consulting Providers: Nikhil Lou; Roger Zuniga; Catrachita Esteban; Clary Craig; Candelaria Cannon; Cornelius Kathleen; Livier Schaefer; Dat Pereira; Lobo Dumont; Manuel Finley; Jacklyn Echeverria; Charo Tilley; Jonas Seals; Rhonda Villalobos; Erin Murillo; Hero Roe; Bashir Bang; Ever Sarmiento; Kuldip Arellano; Michelle Brunner; Padmini Schafer; Yaritza Currie Discharge Orders/Prescriptions Prescriptions: New atorvastatin 80 mg Tablet 80 mg PO QHS Qty: 30 0RF aspirin 81 mg Tablet,Chewable 81 mg PO BREAKFAST Qty: 0 0RF clopidogrel [Plavix] 75 mg tablet 75 mg PO DAILY Qty: 21 0RF Rx Instructions: Take for 21 days starting 01/24/2025 Continued lisinopril-hydrochlorothiazide 20-12.5 mg tablet 1 tab PO BID Other Ambulatory Orders: 30 Day Event Recorder Preventi (Urgent) Timeframe: 1 Day Facility: [facility] - Location: Cardiovascular Services Ordered By: Dr. Ricardo Delgado Referrals / Follow Up: Yosi Parra MD [Primary Care Provider, Family Practice] - Within 2 Weeks Disposition Disposition (needs filled in before D/C Order can be placed): Home, Self Care
[2025-01-23 15:45] VITALS: BP 137/88; PULSE 79; RESP 16; TEMP 36.6; O2SAT 95
--- NOTE | 2025-01-23 15:45 | PCM.DC.SUM ---
Providers Date of Admission: 01/22/25 Date of Discharge: 01/23/25 Primary Care Physician: Dr. Yosi Parra MD Consultations 01/22/25 15:00 Consult: Tele-Neurology Routine Consulting Provider: [facility] Reason for Consult: Acute Ischemic Stroke/TIA EMERGENT Consult: No MD Notified: Yes Date Notified: 01/22/25 Time Notified: 14:33 Method of Notification: Answering Service Nursing Unit Staff Notify [facility] of Tele-Neurology Consult: Yes Reason For Visit: TIA Diagnosis Discharge Diagnosis (1) Right sided weakness: Status: Acute Code(s): R53.1 - Weakness (2) HTN (hypertension): Status: Chronic Code(s): I10 - Essential (primary) hypertension Plan 1. Left gallego radiata ischemic stroke #2 essential hypertension #3 hyperlipidemia Medications at Discharge Home Medications lisinopril 20 mg-hydrochlorothiazide 12.5 mg tablet 1 tab PO BID blood pressure 01/22/25 aspirin 81 mg chewable tablet 81 mg PO BREAKFAST #0 tabs 01/23/25 atorvastatin 80 mg tablet 80 mg PO QHS #30 tabs 01/23/25 clopidogrel 75 mg tablet (Plavix) 75 mg PO DAILY #21 tabs 01/23/25 Hospital Course Operations None Procedures 2-D Echocardiogram Summary of Care Provided Minutes Spent on Discharge: 31 Hospital Course: This 69-year-old white male was seen in the emergency room at [facility] with complaints of right lower extremity weakness and blurred vision. Patient denied any speech difficulties he did state he had some blurry vision. Stroke alert was called, patient's NIH was 0 however and stroke alert was canceled. Patient underwent a CTA of the head and neck and a CT of the brain all of which were unremarkable. Patient was placed in observation status on PCU, he underwent an MRI of the brain which showed an acute left gallego radiata stroke, echocardiogram was unremarkable. It was recommended that the patient be placed on dual antiplatelet therapy for 21 days, he was placed on a statin, he was seen by PT and OT. He did not require outpatient PT or OT services. On 01/23/2025, patient was seen and examined: On examination he appeared in good health and spirits. Vital signs as documented. Skin warm and dry and without overt rashes. Neck without JVD, neck was supple, trachea midline, thyroid was normal. Lungs clear bilaterally, normal air movement was noted. Heart exam notable for regular rhythm, normal sounds and absence of murmurs, rubs or gallops. Abdomen unremarkable and without evidence of organomegaly, masses, or abdominal aortic enlargement. Bowel sounds are present, abdomen is not distended. Extremities nonedematous, no cyanosis was noted, no clubbing was noted. Neuro: Cranial nerves II through XII are grossly intact, no focal motor deficits were noted, sensation to light touch and pinprick intact, motor exam 5/5 throughout. Psych: Patient is alert and oriented x3, he does not appear anxious or depressed, he does not appear agitated. Patient was discharged home in stable condition on 01/23/2025. He was set up for a 30-day Holter monitor after discharge. Weight / BMI Weight Weight: 92.9 kg Body Mass Index (BMI) 28.5 ABG / Lab / Microbiology Data 01/23/25 05:02 01/23/25 05:02 Laboratory: Laboratory Results - last 24 hr 01/22/25 16:16: Troponin T Hi Sens 4Hr 10 01/23/25 05:02: WBC 7.0, RBC 4.75, Hgb 14.1, Hct 41.9, MCV 88.2, MCH 29.7, MCHC 33.7, RDW Std Deviation 40.7, RDW Coeff of Pari 12.7, Plt Count 278, MPV 8.7, Immature Gran % (Auto) 0.300, Neut % (Auto) 62.3, Lymph % (Auto) 22.1, [place] % (Auto) 11.0 H, Eos % (Auto) 3.4, Baso % (Auto) 0.9, Absolute Neuts (auto) 4.4, Absolute Lymphs (auto) 1.55, Nucleated RBC % 0, Sodium 140, Potassium 4.0, Chloride 106, Carbon Dioxide 24.3, Anion Gap 10, BUN 21 H, Creatinine 1.33 H, Estim Creat Clear Calc 61.05, Est GFR (MDRD) Non-Af 58 L, BUN/Creatinine Ratio 15.8, Glucose 108 H, Hemoglobin A1c 5.6, Calcium 8.9, Triglycerides 112, Cholesterol 186, LDL Cholesterol, Calc 118, VLDL Cholesterol 22, HDL Cholesterol 48, Cholesterol/HDL Ratio 3.92, TSH 1.970 Radiography Diagnostic Testing: Radiology Impression Echocardiogram 01/22/25 15:00 Interpretation Summary The left ventricular ejection fraction is 60 %. Normal LV size. Structually normal valves. Ordering Physician: Yaritza Currie Referring Physician: Yosi Parra Performed By: Darcie Bowen, TESSA, RVT D/C Instructions Weight Bearing Status: Full weight bearing DC O2, CPAP, BIPAP Needs Home O2 Discharge instructions: No Meaningful Use Info Meaningful Use Meaningful Use Diagnoses (Choose all that apply): Ischemic CVA CVA Therapy Assessed for PT,OT and/or ST?: Yes Ischemic Stroke Antithrombotic order at d/c?: Yes Dx of Atrial fib/flutter?: No Anticoagulant at discharge?: No Reason anticoagulant not ordered: Treatment not Indicated Statins at discharge?: Yes If patient is 75 or younger, pt will be discharged on HIGH intensity statin.: Yes Primary Dx Acute Ischemic CVA?: Yes IV thrombolytic ordered during stay?: No Reason IV thrombolytic not ordered: Treatment not Indicated Discharge Plan Admission Admit Date/Time: 01/22/25 14:27 Primary Reason for Your Visit: Ischemic stroke Attending Provider: Ricardo Delgado Primary Care Provider: Yosi Parra Consulting Providers: Nikhil Lou; Roger Zuniga; Catrachita Esteban; Clary Craig; Candelaria Cannon; Cornelius Kathleen; Livier Schaefer; Dat Pereira; Lobo Dumont; Manuel Finley; Jacklyn Echeverria; Charo Tilley; Jonas Seals; Rhonda Villalobos; Erin Murillo; Hero Roe; Bashir Bang; Ever Sarmiento; Kuldip Arellano; Michelle Brunner; Padmini Schafer; Yaritza Currie Discharge Orders/Prescriptions Prescriptions: New atorvastatin 80 mg Tablet 80 mg PO QHS Qty: 30 0RF aspirin 81 mg Tablet,Chewable 81 mg PO BREAKFAST Qty: 0 0RF clopidogrel [Plavix] 75 mg tablet 75 mg PO DAILY Qty: 21 0RF Rx Instructions: Take for 21 days starting 01/24/2025 Continued lisinopril-hydrochlorothiazide 20-12.5 mg tablet 1 tab PO BID Other Ambulatory Orders: 30 Day Event Recorder Preventi (Urgent) Timeframe: 1 Day Facility: [facility] - Location: Cardiovascular Services Ordered By: Dr. Ricardo Delgado Referrals / Follow Up: Yosi Parra MD [Primary Care Provider, Family Practice] - Within 2 Weeks Disposition Disposition (needs filled in before D/C Order can be placed): Home, Self Care Charges/Coding Visit Charges Inpatient E&M: 86001 Disch Hosp >30min
== END 2025-01-23 16:30 | disposition home or self-care (01) ==
LOC: ED 13:28 → PCU 14:35
PROVIDERS: Admitting Provider Internal Medicine; Emergency Provider Emergency Medicine; PCP Family Medicine; Visit Provider Internal Medicine
DX: I63.412 Cerebral infarction due to embolism of left middle cerebral artery (principal); I10 Essential (primary) hypertension; E78.5 Hyperlipidemia, unspecified; Z79.899 Other long term (current) drug therapy; Z87.891 Personal history of nicotine dependence
CPT/HCPCS: 36415; 70450; 70496; 70498; 70551; 71045; 80048; 80061; 82962; 83036; 84443; 84484; 85025; 85610; 85730; 92610; 93005; 93306; 96360; 96361; 97162; 97165; 99221; 99285; Q9967; A4216; G0378